=== PATIENT | male | born 1985 | race Caucasian/White ===

== ENCOUNTER 2024-01-04 11:01 | Emergency (ER) | payer OTHER ==
[2024-01-04 11:07] VITALS: BP 125/84; PULSE 71; RESP 18; TEMP 98.1; BMI 27.0
== END 2024-01-04 12:23 | disposition home or self-care (01) ==
LOC: FER 11:01
DX: S89.91XA Unspecified injury of right lower leg, initial encounter (principal); W18.30XA Fall on same level, unspecified, initial encounter
CPT/HCPCS: 73560-TC-RT-FY; 99283-25